=== PATIENT | female | born 1970 | race Caucasian/White ===

== ENCOUNTER 2016-11-06 07:46 | Emergency (ER) | payer BC ==
[2016-11-06 08:28] VITALS: BP 121/83
--- NOTE | 2016-11-06 09:00 | UC ---
Knee Pain HPI - HPI Summary HPI Summary: Pt presents with complaint with pain and popping sensation in the superior portion of knee. Pt states yesterday was push mowing lawn. Pt states popping sensation along knee cap. + mild discomfort. No analgesia taken. Pt states has been running on a treadmill. Pt states with running wears a knee brace for support. Pt states wore brace yesterday afternoon with improvement. Pt also applied ice. No leg weakness. No paresthesia no direct trauma - History of Current Complaint Chief Complaint: UCLowerExtremity Stated Complaint: RIGHT KNEE PAIN Time Seen by Provider: 11/06/16 08:34 Hx Obtained From: Patient Hx Last Menstrual Period: now ?: No Onset/Duration: Gradual Onset Severity Initially: Mild Severity Currently: Mild Pain Intensity: 2 Character: Sharp - popping sensation Aggravating Factor(s): Movement Alleviating Factor(s): Rest, Other - splint Associated Signs And Symptoms: Positive: Negative - Allergies/Home Medications Allergies/Adverse Reactions: Allergies Allergy/AdvReac Type Severity Reaction Status Date / Time No Known Allergies Allergy Verified 11/06/16 08:28 PMH/Surg Hx/FS Hx/Imm Hx Previously Healthy: Yes - Surgical History Surgical History: Yes Surgery Procedure, Year, and Place: broken facial bone, breast biopsy Left-1998 - Family History Known Family History: Positive: None - Social History Occupation: Employed Full-time Lives: With Family Alcohol Use: Weekly Substance Use Type: None Smoking Status (MU): Never Smoked Tobacco - Immunization History Most Recent Influenza Vaccination: no Review of Systems Constitutional: Negative Motor: Other - right knee pain Neurovascular: Negative Musculoskeletal: Other: - right knee pain, popping All Other Systems Reviewed And Are Negative: Yes Physical Exam Triage Information Reviewed: Yes Appearance: Well-Appearing, No Pain Distress, Well-Nourished Vital Signs: Initial Vital Signs Temp 98.9 F 11/06/16 08:22 Pulse 67 11/06/16 08:22 Resp 18 11/06/16 08:22 BP 121/83 11/06/16 08:22 Vital Signs Reviewed: Yes Eyes: Negative: Discharge ENT: Positive: Hearing grossly normal Neck: Positive: Supple Respiratory: Positive: No respiratory distress, No accessory muscle use Cardiovascular: Positive: Other: - 2+ DP, PT CBT< 2 sec Musculoskeletal: Positive: Other: - + SLE + full flex.ext knee - pain with full extension of right LE Pt with discomfort with direct palp over quadricep tendon at patella pt with mild, focal edema Pt with palpable popping sensation over tendon with ROm neg anterior/posterior drawer Neg laxity with lateral joint testing No pain along joint lines Neurological: Positive: Other: - + gross sensation throughout foot Psychological Exam: Normal Diagnostics - Radiology No standard instances Radiology Interpretation Completed By: Radiologist - Patient Name: CARI BRAND Medical Record#: [id number] Ordering Physician: Nallely Reveles MD Acct.# : [id number] : 1970 Age: 46 Sex: F Location: [facility] [place] Exam Date: 11/06/16852 ADM Status: REG ER Order Information: KNEE RIGHT 4+ VWS Accession Number: [id number] CPT: 89163 Indication: Right knee pain. 4 views of the right knee demonstrates no fracture. No joint effusion is identified. No other bone or joint abnormality is noted. IMPRESSION: Unremarkable right knee. <Electronically signed by Dora Cha MD in OV> 11/06/16 0920 Re-Evaluation - Re-Evaluation First Eval Comment: reviewed imaging with pt. motrin/apap. splint. rest. ice. pcp f/ u. return prn Knee Pain Course/Dx - Course Course Of Treatment: Pt with pain over right quad tendon with full ROM. mild edema. Will check imaging. if neg - splint (pt has). motrin. ice. sports medicine referral vs pcp f/u - Differential Dx/Diagnosis Provider Diagnoses: quadricep tendonitis Discharge - Discharge Plan Condition: Stable Disposition: HOME Patient Education Materials: Patellar Tendinitis (ED) Referrals: Darcy Brooks NP [Primary Care Provider] - Additional Instructions: - wear splint for comfort and support - apply ice, 20minutes at a time, 2-3 times a day. do - wear knee splint for comfort and support - avoid running - walking ok -for 3-4 days - contact your doctor to schedule a follow-up appointment. contact your doctor or return with questions or concerns
--- NOTE | 2016-11-06 09:23 | RAD ---
Indication: Right knee pain. 4 views of the right knee demonstrates no fracture. No joint effusion is identified. No other bone or joint abnormality is noted. IMPRESSION: Unremarkable right knee.
== END 2016-11-06 09:34 | disposition home or self-care (01) ==
LOC: UCCORT 07:46
DX: M76.891 Other specified enthesopathies of right lower limb, excluding foot (principal)
CPT/HCPCS: 99211; G0463

== ENCOUNTER 2017-06-30 09:04 | Emergency (ER) | payer BC ==
[2017-06-30 09:48] VITALS: BP 109/70
--- NOTE | 2017-06-30 10:02 | UC ---
Eye Complaint HPI - HPI Summary HPI Summary: Pt states woke this morning with sticky discharge from left eye. Pt states has been red since. Pt wears glasses. Remotely used contacts - non for several months. Pt denies fever, chill. no NEAL, vision changes. no rash. No ear pain. No other complaints. 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 rt knee arthroscopy 2017 - Family History Known Family History: Positive: None - Social History Occupation: Employed Full-time Lives: With Family Alcohol Use: Occasionally Substance Use Type: None Smoking Status (MU): Never Smoked Tobacco - Immunization History Most Recent Influenza Vaccination: no Review of Systems Constitutional: Negative Skin: Negative Eyes: Drainage, Eye Redness ENT: Negative All Other Systems Reviewed And Are Negative: Yes Physical Exam Triage Information Reviewed: Yes Appearance: Well-Appearing, No Pain Distress, Well-Nourished Vital Signs: Initial Vital Signs Temp 97.8 F 06/30/17 09:42 Pulse 61 06/30/17 09:42 Resp 16 06/30/17 09:42 BP 109/70 06/30/17 09:42 Pulse Ox 100 06/30/17 09:42 Vital Signs Reviewed: Yes Eyes: Positive: Other: - TRESSA. EOM intact and full left eye injected, scant discharge - yellow No photophonia difficulty visualization fundus - no dilatation - pt states was dilated last week ENT Exam: Normal ENT: Positive: Normal ENT inspection, Hearing grossly normal, Pharynx normal, TMs normal Dental Exam: Normal Neck exam: Normal Neck: Positive: Supple, Nontender, No Lymphadenopathy Respiratory Exam: Normal Respiratory: Positive: Chest non-tender, Lungs clear, Normal breath sounds, No respiratory distress, No accessory muscle use Cardiovascular Exam: Normal Cardiovascular: Positive: RRR, No Murmur, Pulses Normal Abdominal Exam: Normal Abdomen Description: Positive: Nontender. Negative: CVA Tenderness (R), CVA Tenderness (L) Musculoskeletal Exam: Normal Musculoskeletal: Positive: Strength Intact Neurological Exam: Normal Neurological: Positive: Alert Psychological Exam: Normal Psychological: Positive: Normal Response To Family Skin Exam: Normal Eye Complaint Course/Dx - Course Course Of Treatment: Pt with injection, drainage left eye since this morning. No other complaints. Will start polytrim. hygeine precaution. return precaution. Pt in agreement with plan - Differential Dx/Diagnosis Provider Diagnoses: conjunctivitis Discharge - Sign-Out/Discharge Documenting (check all that apply): Discharge/Admit/Transfer - Discharge Plan Condition: Stable Disposition: HOME Prescriptions: Polymyx/Trimethoprim OPTH* [Polytrim OPHTH*] 2 drop LEFT EYE TID #1 btl Patient Education Materials: Conjunctivitis (ED) Referrals: Darcy Brooks CAREER REPRESENTATIVE [Primary Care Provider] - Additional Instructions: - apply eye drops to left eye 3 times a day for the next 5 days -okay to alternate ibuprofen (Advil, Motrin) 600mg and tylenol every 3 hours for pain. Take with food - wearing sunglasses will help with discomfort - apply wet, warm soaks to your eye to cleanse discharge - do not re-use cloth until washed - These are very contagious - thorough hand washing before and after applying eye drops -contact your order processing specialist, return here or go to the emergency department for follow-up if you have any questions or concerns - Billing Disposition and Condition Condition: STABLE Disposition: HOME
== END 2017-06-30 10:20 | disposition home or self-care (01) ==
LOC: UCCORT 09:04
DX: H10.9 Unspecified conjunctivitis (principal)
CPT/HCPCS: 99212; G0463

== ENCOUNTER 2018-03-14 13:21 | Emergency (ER) | payer BC ==
[2018-03-14 13:46] VITALS: BP 119/85
--- NOTE | 2018-03-14 14:01 | UC ---
Respiratory Complaint HPI - HPI Summary HPI Summary: 4-5 days of sinus lars., soliz, cough. no sick contacts. - History of Current Complaint Chief Complaint: UCRespiratory Stated Complaint: SINUSES Time Seen by Provider: 03/14/18 13:39 Hx Obtained From: Patient Jason Last Menstrual Period: NOVEMBER 2017 Onset/Duration: Gradual Onset Pain Intensity: 3 Pain Scale Used: 0-10 Numeric Character: Cough: Productive Aggravating Factors: Recumbent Position Alleviating Factors: Nothing Associated Signs And Symptoms: Negative: Dyspnea, Fever, Chills, Pleuritic Chest Pain - Allergies/Home Medications Allergies/Adverse Reactions: Allergies Allergy/AdvReac Type Severity Reaction Status Date / Time No Known Allergies Allergy Verified 03/14/18 13:40 PMH/Surg Hx/FS Hx/Imm Hx Previously Healthy: Yes - Surgical History Surgical History: Yes Surgery Procedure, Year, and Place: broken facial bone, breast biopsy Left- 1998. rt knee arthroscopy 2016 - Family History Known Family History: Positive: None - Social History Alcohol Use: Occasionally Substance Use Type: None Smoking Status (MU): Never Smoked Tobacco - Immunization History Most Recent Influenza Vaccination: no Review of Systems All Other Systems Reviewed And Are Negative: Yes Constitutional: Positive: Negative. Negative: Fever Skin: Negative: Rash Eyes: Negative: Drainage ENT: Positive: Nasal Discharge, Sinus Congestion, Sinus Pain/Tenderness. Negative: Dental Pain, Sore Throat, Ear Ache Respiratory: Positive: Cough. Negative: Shortness Of Breath Cardiovascular: Positive: Negative Physical Exam Triage Information Reviewed: Yes Appearance: Well-Appearing Vital Signs: Initial Vital Signs Temp 98 F 03/14/18 13:41 Pulse 86 03/14/18 13:41 Resp 16 03/14/18 13:41 BP 119/85 03/14/18 13:41 Pulse Ox 99 03/14/18 13:41 Vital Signs Reviewed: Yes Eyes: Positive: Conjunctiva Clear ENT: Positive: Pharynx normal, Nasal congestion, TMs normal, Uvula midline. Negative: Nasal drainage, Dental tenderness, Sinus tenderness Dental: Negative: Percussion Tenderness @ Neck exam: Normal Respiratory Exam: Normal Cardiovascular Exam: Normal Neurological: Positive: Alert UC Diagnostic Evaluation - Laboratory O2 Sat by Pulse Oximetry: 99 Respiratory Course/Dx - Course Course Of Treatment: 4 days of sinusitis, post nasal drip, and occasional cough. exam essentially unremarkable. will rx antibx to cover for possible bacterial source but it is presumed viral. good vitals. - Differential Dx/Diagnosis Differential Diagnosis/HQI/PQRI: Asthma, Bronchitis, Sinusitis Provider Diagnosis: Acute sinusitis Discharge - Sign-Out/Discharge Documenting (check all that apply): Patient Departure All imaging exams completed and their final reports reviewed: No Studies - Discharge Plan Condition: Good Disposition: HOME Prescriptions: Amoxicillin/Clavulanate TAB* [Augmentin TAB 500 mg*] 500 mg PO BID 7 Days #14 tab Patient Education Materials: Sinusitis (ED) Forms: *Work Release Referrals: Darcy Brooks NP [Primary Care Provider] - Additional Instructions: follow up with pcp if not improving. - Billing Disposition and Condition Condition: GOOD Disposition: Home
== END 2018-03-14 14:14 | disposition home or self-care (01) ==
LOC: UCCORT 13:21
DX: J01.90 Acute sinusitis, unspecified (principal)
CPT/HCPCS: 99212; G0463

== ENCOUNTER 2018-06-16 14:08 | Emergency (ER) | payer BC ==
[2018-06-16 14:34] VITALS: BP 112/76
[2018-06-16] MEDS ORDERED: Ibuprofen TAB* 600 MG PO ONE (14:36)
--- NOTE | 2018-06-16 14:45 | UC ---
Truncal Trauma HPI - HPI Summary HPI Summary: fell off horse 30 minutes ago today, right rib pain, landed on right side, denies loc. Wears helmet. - History Of Current Complaint Chief Complaint: UCTrauma Stated Complaint: R SIDE RIB PAIN (FALL FROM HORSE) Time Seen by Provider: 06/16/18 14:34 Hx Obtained From: Patient Hx Last Menstrual Period: NOVEMBER 2017 ?: No Onset/Duration: Sudden Onset, Lasting Minutes Onset Of Pain: Immediate Severity Initially: Severe Pain Intensity: 7 Mechanism Of Injury: Fall From Height Of: - HORSE - Allergies/Home Medications Allergies/Adverse Reactions: Allergies Allergy/AdvReac Type Severity Reaction Status Date / Time No Known Allergies Allergy Verified 06/16/18 14:34 PMH/Surg Hx/FS Hx/Imm Hx Previously Healthy: Yes - Surgical History Surgical History: Yes Surgery Procedure, Year, and Place: broken facial bone, breast biopsy Left- 1998. rt knee arthroscopy 2016 - Family History Known Family History: Positive: None - Social History Alcohol Use: Occasionally Substance Use Type: None Smoking Status (MU): Never Smoked Tobacco - Immunization History Most Recent Influenza Vaccination: no Review of Systems All Other Systems Reviewed And Are Negative: Yes Musculoskeletal: Positive: Arthralgia, Decreased ROM, Myalgia Is Patient Immunocompromised?: No Physical Exam Triage Information Reviewed: Yes Appearance: Well-Appearing, Well-Nourished, Pain Distress Vital Signs: Initial Vital Signs Temp 97.8 F 06/16/18 14:31 Pulse 83 06/16/18 14:31 Resp 16 06/16/18 14:31 BP 112/76 06/16/18 14:31 Pulse Ox 100 06/16/18 14:31 Vital Signs Reviewed: Yes ENT Exam: Normal Dental Exam: Normal Neck exam: Normal Respiratory Exam: Normal Respiratory: Positive: Chest non-tender, Lungs clear, Normal breath sounds Cardiovascular Exam: Normal Abdominal Exam: Normal Abdomen Description: Positive: Nontender, No Organomegaly, Soft Bowel Sounds: Positive: Present Musculoskeletal Exam: Normal Neurological Exam: Normal Psychological Exam: Normal Skin Exam: Normal Truncal Trauma Course/Dx - Course Course Of Treatment: hx obtained, exam performed ,meds reviewed, xrays obtained, ibuprofen given. - Differential Dx/Diagnosis Differential Diagnosis/HQI/PQRI: Rib Fracture Provider Diagnosis: Contusion of rib Discharge - Sign-Out/Discharge Documenting (check all that apply): Patient Departure All imaging exams completed and their final reports reviewed: Yes - Discharge Plan Condition: Stable Disposition: HOME Patient Education Materials: Rib Contusion (ED) Referrals: Darcy Brooks NP [Primary Care Provider] - Additional Instructions: 1. ICE FOR THE NEXT 24 HOURS 2. THEN SWITCH TO HEAT 3. IBUPROFEN FOR PAIN AND SWELLING 4. TAKE DEEP BREATHS AND STRETCH OFTEN. 5. FOLLOW UP IF NOT IMPROVING. - Billing Disposition and Condition Condition: STABLE Disposition: Home
== END 2018-06-16 15:24 | disposition home or self-care (01) ==
LOC: UCCORT 14:08
DX: S20.20XA Contusion of thorax, unspecified, initial encounter (principal); V80.010A Animal-rider injured by fall from or being thrown from horse in noncollision accident, initial encounter; Y93.52 Activity, horseback riding; Y92.9 Unspecified place or not applicable
CPT/HCPCS: 99212; A9270-GY; G0463

== ENCOUNTER 2018-06-22 12:54 | Emergency (ER) | payer BC ==
[2018-06-22 13:07] VITALS: BP 114/79
[2018-06-22] MEDS ORDERED: Tetan/Diph/Pertus SYR(Tdap)* 0.5 ML SYR(BOOSTRIX) use SYR IM ONE (13:26)
--- NOTE | 2018-06-22 13:26 | UC ---
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 she fell to the ground and is c/o a cut and pain to her R forehead. She denies any headache, LOC, N/V, dizziness, visual changes as well as neck and back pain. she denies any other injuries and has no other complaints. her last Tetanus is not known. she did have a R zygomatic arch fx years ago but states there is no pain in that area. 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 Hx Last Menstrual Period: NOVEMBER 2017 Onset/Duration: Sudden Onset Pain Intensity: 8 Aggravating Factor(s): Nothing Alleviating Factor(s): Nothing Associated Signs And Symptoms: Negative: Confusion, Memory Loss, Seizure, Epistaxis, Dental Malocclusion, Neck Pain, Nausea, Vomiting - Allergies/Home Medications Allergies/Adverse Reactions: Allergies Allergy/AdvReac Type Severity Reaction Status Date / Time No Known Allergies Allergy Verified 06/22/18 13:01 Home Medications: Home Medications Acetaminophen TAB* [Tylenol TAB*] 650 mg PO Q4H PRN 06/22/18 [History Confirmed 06/22/18] Citalopram TAB* [CeleXA TAB*] 20 mg PO DAILY 06/22/18 [History Confirmed ] PMH/Surg Hx/FS Hx/Imm Hx Psychological History: Depression - Surgical History Surgical History: Yes Surgery Procedure, Year, and Place: Right Knee Arthorscopy, 2016, [place], Left Breast Biopsy, 1998; Right Zygomatic Arch Fracture Repair, ~1995, [place] - Family History Known Family History: Positive: None - Social History Alcohol Use: Occasionally Substance Use Type: None Smoking Status (MU): Never Smoked Tobacco - Immunization History Most Recent Influenza Vaccination: no Most Recent Tetanus Shot: "I don't know." Hx Tetanus, Diphtheria Vaccination: No Review of Systems All Other Systems Reviewed And Are Negative: Yes Skin: Positive: Other - cut and pain R forehead Eyes: Negative: Blurred Vision, Diplopia ENT: Negative: Dental Pain Physical Exam Triage Information Reviewed: Yes Appearance: Well-Appearing Vital Signs: Initial Vital Signs Temp 98 F 06/22/18 12:57 Pulse 82 06/22/18 12:57 Resp 16 06/22/18 12:57 BP 114/79 06/22/18 12:57 Pulse Ox 100 06/22/18 12:57 Vital Signs Reviewed: Yes Eyes: Positive: Other: - PERRL, EOMI with no double or blurry vision. ENT: Positive: Pharynx normal, TMs normal. Negative: Nasal congestion, Nasal drainage Dental: Positive: Other: - No facial instability. Negative: Percussion Tenderness @, Dental Fracture @ Neck: Positive: Supple, Nontender, No Lymphadenopathy, Other: - c-spine non tender and rom intact. Respiratory: Positive: Chest non-tender, Lungs clear, Normal breath sounds Cardiovascular: Positive: RRR, No Murmur Abdomen Description: Positive: Nontender Musculoskeletal: Positive: Other: - Head: no cranial or facial bone instability. R forehead is tender. No facial tenderness. Back: non tender and rom intact. Extremities: atraumatic and s/v/m intact x4. Neurological: Positive: Other: - A&O x3. CN 2-12 grossly intact. Steady gait. Psychological: Positive: Age Appropriate Behavior Skin Exam: Normal, Other - 1.5cm laceration R forehead, fat seen. Diagnostics - Radiology No standard instances Radiology Interpretation Completed By: Radiologist - ct brain=IMPRESSION: 1. NO EVIDENCE FOR ACUTE INTRACRANIAL ABNORMALITY. 2. LACERATION IN THE SCALP ANTERIOR TO THE RIGHT FRONTAL BONE. Head Injury Course/Dx - Course Course Of Treatment: PROCEDURE: TIME OUT. SITE PREP BETADINE. LOCAL WITH 2ML AND 1% LIDOCAINE. EXPLORED, NO BONY DEFORMITY OR FB'S SEEN. IRRIGATED WITH STERILE NACL. PREP BETADINE. DRAPED IN STERILE FASHION. CLOSED IN 2 LAYERS, INNER WITH 2 6-0 VICRYL AND OUTER CLOSED WITH 5 6-0 NYLON. STERILE TECHNIQUE USED. BACITRACIN APPLIED THEN A BANDAGE. PT TOLERATED WELL. WILL COVER WITH AUGMENTIN GIVEN NATURE OF WOUND(INJURY FROM HORSE IN A BARN TYPE SETTING). - Differential Dx/Diagnosis Provider Diagnosis: Laceration of face Discharge - Sign-Out/Discharge Documenting (check all that apply): Patient Departure All imaging exams completed and their final reports reviewed: Yes - Discharge Plan Condition: Stable Disposition: HOME Prescriptions: Amoxicillin/Clavulanate TAB* [Augmentin TAB 875*] 875 mg PO BID 7 Days #14 tab Patient Education Materials: Care For Your Stitches (ED), Head Injury (ED) Referrals: Darcy Brooks NP [Primary Care Provider] - Additional Instructions: SUTURES OUT IN 5 DAYS BY PRIMARY CARE OR RETURN HERE. - Billing Disposition and Condition Condition: STABLE Disposition: Home
[2018-06-22] MEDS ORDERED: Lidocaine 1%* 5 ML VIAL INJ ONE (13:27)
== END 2018-06-22 14:56 | disposition home or self-care (01) ==
LOC: UCCORT 12:54
DX: S01.81XA Laceration without foreign body of other part of head, initial encounter (principal); W55.12XA Struck by horse, initial encounter; Y92.9 Unspecified place or not applicable; Y99.9 Unspecified external cause status; W19.XXXA Unspecified fall, initial encounter
CPT/HCPCS: 12051; 70450; 90471; 90715; 99212; G0463

== ENCOUNTER 2018-06-27 07:34 | Emergency (ER) | payer BC ==
[2018-06-27 07:58] VITALS: BP 109/67
--- NOTE | 2018-06-27 08:32 | UC ---
HPI Wound/Suture Re-check - HPI Summary HPI Summary: suture removal from a laceration right side of forehead repair was done here 5 days ago , has no complaints, wound is healing will, no discharge , no bleeding , denies any headaches, dizziness, no visual changes - History Of Current Complaint Chief Complaint: UCSkin Stated Complaint: REMOVE STITCHES Time Seen by Provider: 06/27/18 08:08 Hx Obtained From: Patient Hx Last Menstrual Period: NOVEMBER 2017 Onset/Duration: Sudden Onset, Lasting Days - 5, Still Present Severity: Moderate Pain Intensity: 1 Procedure Type: suture removal Surgery Date: 06/22/18 - Allergies/Home Medications Allergies/Adverse Reactions: Allergies Allergy/AdvReac Type Severity Reaction Status Date / Time No Known Allergies Allergy Verified 06/27/18 07:51 Home Medications: Home Medications Ibuprofen TAB* [Advil TAB*] 200 mg PO Q6H PRN 06/27/18 [History Confirmed ] PMH/Surg Hx/FS Hx/Imm Hx Previously Healthy: Yes - Surgical History Surgical History: Yes Surgery Procedure, Year, and Place: Right Knee Arthorscopy, 2016, [place], Left Breast Biopsy, 1998; Right Zygomatic Arch Fracture Repair, ~1995, [place] - Family History Known Family History: Positive: None Negative: Diabetes - Social History Alcohol Use: Occasionally Substance Use Type: None Smoking Status (MU): Never Smoked Tobacco - Immunization History Most Recent Influenza Vaccination: no Most Recent Tetanus Shot: 06/22/18 Hx Tetanus, Diphtheria Vaccination: No Review of Systems All Other Systems Reviewed And Are Negative: Yes Constitutional: Positive: Negative Eyes: Positive: Negative ENT: Positive: Negative Respiratory: Positive: Negative Cardiovascular: Positive: Negative Is Patient Immunocompromised?: No Physical Exam Triage Information Reviewed: Yes Appearance: Well-Appearing, No Pain Distress, Well-Nourished Vital Signs: Initial Vital Signs Temp 98.1 F 06/27/18 07:53 Pulse 67 06/27/18 07:53 Resp 16 06/27/18 07:53 BP 109/67 06/27/18 07:53 Pulse Ox 100 06/27/18 07:53 Vital Signs Reviewed: Yes Eye Exam: Normal Eyes: Positive: Conjunctiva Clear ENT: Positive: Normal ENT inspection, Hearing grossly normal, Pharynx normal Neck: Positive: Supple, Nontender, No Lymphadenopathy Respiratory: Positive: Chest non-tender, Lungs clear, Normal breath sounds Cardiovascular: Positive: RRR, No Murmur, Pulses Normal Skin: Positive: Other - 1.5 cm lacearation right side of forehead, 5 sutures intact , wound is clean, dry , no swelling, no redness, no discharge, sutures were removed Course/Dx - Diagnosis Provider Diagnosis: Visit for suture removal Discharge - Sign-Out/Discharge Documenting (check all that apply): Patient Departure All imaging exams completed and their final reports reviewed: No Studies - Discharge Plan Condition: Stable Disposition: HOME Patient Education Materials: Stitches Removal (ED) Referrals: Darcy Brooks NP [Primary Care Provider] - If Needed - Billing Disposition and Condition Condition: STABLE Disposition: Home
== END 2018-06-27 08:15 | disposition home or self-care (01) ==
LOC: UCCORT 07:34
DX: Z48.02 Encounter for removal of sutures (principal)

== ENCOUNTER 2018-07-17 14:19 | Emergency (ER) | payer BC ==
[2018-07-17 15:54] VITALS: BP 115/69
--- NOTE | 2018-07-17 16:01 | UC ---
General HPI - HPI Summary HPI Summary: laceration repair face last month. today, pt pulled a piece of dry skin at the site and realized it was attached and may be a stitch. - History of Current Complaint Chief Complaint: SUSANNAkin Stated Complaint: STITCH RECHECK Time Seen by Provider: 07/17/18 15:56 Hx Obtained From: Patient Hx Last Menstrual Period: NOVEMBER 2017 Pain Intensity: 0 Associated Signs & Symptoms: Negative: Edema, Fever - Allergy/Home Medications Allergies/Adverse Reactions: Allergies Allergy/AdvReac Type Severity Reaction Status Date / Time No Known Allergies Allergy Verified 07/17/18 15:48 PMH/Surg Hx/FS Hx/Imm Hx Psychological History: Depression - Surgical History Surgical History: Yes Surgery Procedure, Year, and Place: Right Knee Arthorscopy, 2016, [place], Left Breast Biopsy, 1998; Right Zygomatic Arch Fracture Repair, ~1995, [facility] - Family History Known Family History: Positive: None Negative: Diabetes - Social History Alcohol Use: Occasionally Substance Use Type: None Smoking Status (MU): Never Smoked Tobacco - Immunization History Most Recent Influenza Vaccination: no Most Recent Tetanus Shot: 06/22/18 Hx Tetanus, Diphtheria Vaccination: No Review of Systems All Other Systems Reviewed And Are Negative: No Constitutional: Negative: Fever Skin: Negative: Rash Musculoskeletal: Negative: Edema Physical Exam Triage Information Reviewed: Yes Appearance: Well-Appearing Vital Signs: Initial Vital Signs Temp 98 F 07/17/18 15:48 Pulse 66 07/17/18 15:48 Resp 17 07/17/18 15:48 BP 115/69 07/17/18 15:48 Pulse Ox 100 07/17/18 15:48 Vital Signs Reviewed: Yes Respiratory: Positive: No respiratory distress Musculoskeletal: Positive: ROM Intact Neurological: Positive: Alert Psychological: Positive: Age Appropriate Behavior Skin Exam: Normal, Other - Healing site R forehead with a tiny(2mm) piece of vicryl poking out of scar. No erythema or swelling and site non tender. Fine point of scissors used to snip the exposed suture. Skin: Negative: Rashes Course/Dx - Diagnoses Provider Diagnosis: Encounter for wound re-check Discharge - Sign-Out/Discharge Documenting (check all that apply): Patient Departure All imaging exams completed and their final reports reviewed: No Studies - Discharge Plan Condition: Stable Disposition: HOME Patient Education Materials: Acute Wound Care (ED) Referrals: Darcy Brooks NP [Primary Care Provider] - If Needed - Billing Disposition and Condition Condition: STABLE Disposition: Home
== END 2018-07-17 16:05 | disposition home or self-care (01) ==
LOC: UCCORT 14:19
DX: S01.81XD Laceration without foreign body of other part of head, subsequent encounter (principal); F32.9 Major depressive disorder, single episode, unspecified; X58.XXXD Exposure to other specified factors, subsequent encounter
CPT/HCPCS: 99211; G0463